=== PATIENT | male | born 1970 | race Caucasian/White ===

== ENCOUNTER 2017-01-10 23:41 | Emergency (ER) | payer OTHER ==
[~2017-01-10] VITALS: Ht 172.7 cm; Wt 131.5 kg
[~2017-01-10 23:41] MED LIST: CLON0.1T; FLUO-126; GABA-494
[2017-01-11 00:06] LABS: Basophils # (auto) 0.1 uL; Basophils % (auto) 1.1 % (0.0-2.0); Eosinophils # (auto) 0.2 uL; Eosinophils % (auto) 1.6 % (0.0-7.0); Hematocrit 45.4 % (41.0-53.0); Lymphocytes # (auto) 3.5 uL; Lymphocytes % (auto) 31.5 % (10.0-50.0); Mean Corpuscular Hemoglobin 30.2 pg (28.0-32.0); Mean Corpuscular Hgb Conc. 33.1 g/dL (32.0-36.0); Mean Corpuscular Volume 91.3 fL (80.0-100.0); Mean Platelet Volume 9.6 fL (7.4-10.4); Monocytes # (auto) 0.6 uL; Neutrophils # (auto) 6.7 uL; Neutrophils % (auto) 60.8 % (37.0-80.0); Platelet Count (auto) 207 10^3/uL (140-450); Red Cell Distribution Width 12.3 % (11.6-16.0); SUSPECT VIEW TRANSMISSION; White Blood Cell 11.1 10^3/uL (4.4-10.8)
[2017-01-11 00:25] LABS: INR 0.94 (0.9-1.15); Partial Thromboplastin Time 28.4 sec (22.64-33.71); Prothrombin Time 10.2 sec (9.37-12.3)
[2017-01-11 00:30] LABS: Albumin 3.6 g/dL (3.4-5.0); Anion Gap 7 (5-15); Blood Urea Nitrogen 12 mg/dL (7-18); Calcium 8.6 mg/dL (8.5-10.1); Carbon Dioxide 24 mmol/L (21-32); Chloride 111 mmol/L (98-107); GFR African American 134 mL/min; GFR Non-African American 111 mL/min; Glucose 171 mg/dL (74-106); Potassium 3.9 mmol/L (3.5-5.1); Sodium 142 mmol/L (136-145)
[2017-01-11 00:38] LABS: B-Type Natriuretic Peptide 17.86 pg/mL (0-100)
[2017-01-11 00:39] LABS: Alkaline Phosphatase 75 U/L (45-117); Aspartate Aminotransferase 15 U/L (15-37); Bilirubin, Total 0.3 mg/dL (0.2-1.0); Total Protein 7.7 g/dL (6.4-8.2)
[2017-01-11 00:47] LABS: Temperature: 22.9 C (20.0-25.0)
[2017-01-11 03:49] VITALS: BP 120/61
== END 2017-01-11 03:54 | disposition home or self-care (01) ==
LOC: ER 23:41
DX: R00.2 Palpitations (principal); J32.9 Chronic sinusitis, unspecified; I10 Essential (primary) hypertension; I48.91 Unspecified atrial fibrillation; R06.02 Shortness of breath; Z95.818 Presence of other cardiac implants and grafts; F17.210 Nicotine dependence, cigarettes, uncomplicated
CPT/HCPCS: 36415; 71010; 80053; 83880; 84484; 85025; 85610; 85730; 93005

== ENCOUNTER 2019-05-24 00:03 | Emergency (ER) | payer OTHER ==
[~2019-05-24] VITALS: Ht 172.7 cm; Wt 127.0 kg
[~2019-05-24 00:03] MED LIST changes: -GABA-494; +GABA100C9
[2019-05-24 01:24] LABS: Basophils # (auto) 0.1 uL; Basophils % (auto) 1.5 % (0.0-2.0); Eosinophils # (auto) 0.1 uL; Eosinophils % (auto) 0.7 % (0.0-7.0); Hematocrit 41.9 % (41.0-53.0); Hemoglobin 14.8 g/dL (13.5-17.5); Lymphocytes # (auto) 2.1 uL; Lymphocytes % (auto) 20.4 % (10.0-50.0); Mean Corpuscular Hemoglobin 31.4 pg (28.0-32.0); Mean Corpuscular Hgb Conc. 35.3 g/dL (32.0-36.0); Mean Corpuscular Volume 89.1 fL (80.0-100.0); Monocytes # (auto) 0.6 uL; Monocytes % (auto) 6.2 % (0.0-12.0); Neutrophils # (auto) 7.2 uL; Neutrophils % (auto) 71.2 % (37.0-80.0); Platelet Count (auto) 196 10^3/uL (140-450); Red Cell Distribution Width 13.1 % (11.8-14.3); White Blood Cell 10.1 10^3/uL (4.4-10.8)
[2019-05-24 01:39] LABS: INR 0.93 (0.9-1.15); Partial Thromboplastin Time 27.6 sec (23.64-32.05)
[2019-05-24 02:02] LABS: Chloride 110 mmol/L (98-107); Potassium 3.8 mmol/L (3.5-5.1); Sodium 140 mmol/L (136-145)
[2019-05-24 02:03] LABS: Alanine Aminotransferase 68 U/L (16-61); Albumin 3.4 g/dL (3.4-5.0); Alkaline Phosphatase 61 U/L (45-117); Anion Gap 8 (5-15); Aspartate Aminotransferase 26 U/L (15-37); BUN/Creatinine Ratio 23.9; Bilirubin, Total 0.3 mg/dL (0.2-1.0); Blood Urea Nitrogen 22 mg/dL (7-18); Calcium 8.6 mg/dL (8.5-10.1); Carbon Dioxide 22 mmol/L (21-32); GFR African American 113 mL/min; GFR Non-African American 94 mL/min; Glucose 207 mg/dL (74-106); Magnesium 1.8 mg/dL (1.6-2.6); Total Protein 7.4 g/dL (6.4-8.2)
[2019-05-24 02:41] VITALS: BP 122/71
[2019-05-24 04:00] LABS: Urine Bacteria NONE SEEN /hpf (None Seen); Urine Blood Negative /uL (Negative); Urine Specific Gravity 1.006 (1.001-1.035); Urine WBC <1 /hpf (0 - 3)
== END 2019-05-24 04:23 | disposition home or self-care (01) ==
LOC: EDBD 00:03 → ER 00:05
DX: I51.7 Cardiomegaly (principal); F41.9 Anxiety disorder, unspecified; I48.91 Unspecified atrial fibrillation; Z90.49 Acquired absence of other specified parts of digestive tract
CPT/HCPCS: 36415; 71045; 80053; 80320; 81001; 83735; 83880; 84443; 84484; 85025; 85610; 85730; 93005